=== PATIENT | female | born 1965 | race Caucasian/White ===

== ENCOUNTER → 2016-11-05 | Outpatient (CLI) | payer OTHER ==
[~2016-11-05] MED LIST: ALBUTEROL17 GM INH; ATARAX PO; BACLOFEN10 MG PO; CELEBREX100 MG PO; DULERA 200 MCG/13 GM IH; MEDROL DOSEPAK4 MG DOB; MEDROL PO; NO MEDICATIONS; NORCO1 TAB 10/3; PREDNISONE PO; PROMETHAZINE W118 M1 PO; SPIRIVA18 MCG PO; SYMBICORT INH; TUSSINEX PO; VIBRAMYCIN100 M1 PO; VOLTAREN75 MG; ZITHROMAX PO
--- NOTE | ~2016-11-05 | CT57 ---
[facility] A Service of [facility] RADIOLOGY TEXT RESULTS PATIENT: [id number] 61 UNIT #: [id number] AGE: [address]: Jaylyn To SEX: F ORDER DR: [id number] [facility]. [place], [place] [address] [id number] O MR#: [id number] Acc #: [id number] NAME: ELY AYERS : 1965 SEX: F STUDY DATE/TIME: 11/05/2016 14:09 UNIT: [facility] ROOM: STUDY DESCRIPTION: CT Chest Wo Cont Attending Physician: Jaylyn To A.P.R.N. Referring Physician: Jaylyn To A.P.R.N. Ordering Physician: Shayy LagosRTarik Primary Care Physician: Ryan DiaPKeraRTarik MEDICAL IMAGING REPORT This report is preliminary unless electronic signature is present EXAM CT of the chest without contrast INDICATIONS Left-sided rib numbness for 1 month. Chest pain for 2 months. Shortness of breath and cough for [address] of the chest was performed without contrast. Coronal and sagittal reformatted images were obtained. This CT exam was performed with one or more of the following radiation dose reduction techniques: automatic exposure control, adjustment of mA and/or kV according to patient size, and iterative reconstruction. COMPARISON STUDIES No comparisons. FINDINGS Emphysema with biapical scarring. There is no suspicious pulmonary nodule. No airspace consolidation. No suspicious lymphadenopathy. Minimal coronary artery calcification. Limited imaging of the upper abdomen is unremarkable. Bone windows are unremarkable. IMPRESSION Emphysema with biapical scarring. Otherwise, unremarkable. Dictated by... Christopher Finnegan M.D. THIS IS AN ELECTRONICALLY VERIFIED REPORT [facility] A Service of [facility] RADIOLOGY TEXT RESULTS PATIENT: ELY AYERS LOCATION: [facility] #: [id number] : 61 UNIT #: [id number] AGE: [address]: Jaylyn To SEX: F ORDER DR: Christopher Finnegan M.D. at 11/06/2016 9:05 AM ARS/pcl TD: 11/05/2016 15:55 JOB #: [id number] MEDICAL IMAGING REPORT Page 1 of 1 COPY
== END | disposition home or self-care (01) ==
LOC: CCAT 12:46
DX: J44.9 Chronic obstructive pulmonary disease, unspecified (principal); J98.4 Other disorders of lung; Z72.0 Tobacco use; R20.2 Paresthesia of skin
CPT/HCPCS: 71250

== ENCOUNTER 2016-11-12 00:40 | Emergency (ER) | payer OTHER ==
--- NOTE | ~2016-11-12 | CR127 ---
[facility]. [facility] A Service of [facility] RADIOLOGY TEXT RESULTS PATIENT: ELY AYERS LOCATION: SED : 61 UNIT #: [id number] AGE: [address]: Phi Jose MD SEX: F ORDER DR: [id number] [address] [id number] E MR#: [id number] Acc #: [id number] NAME: ELY AYERS : 1965 SEX: F STUDY DATE/TIME: 11/12/2016 2:30 UNIT: SED ROOM: STUDY DESCRIPTION: CR Foot Complete Min 3 View Rt Attending Physician: Phi Jose M.D. Ordering Physician: Phi Jose M.D. Primary Care Physician: Shila Quinones A.P.R.N. MEDICAL IMAGING REPORT This report is preliminary unless electronic signature is present. EXAM Right foot series INDICATION Right foot pain today. PROCEDURE 3 views of the right foot COMPARISON 10/15/2013 FINDINGS No acute fracture. No dislocation. IMPRESSION No acute findings. Dictated by... Stan Bennett M.D. THIS IS AN ELECTRONICALLY VERIFIED REPORT Stan Bennett M.D. at 11/16/2016 7:22 AM Patrick TD: 11/12/2016 10:12 JOB #: [id number] MEDICAL IMAGING REPORT Page 1 of 1
== END 2016-11-12 03:20 | disposition home or self-care (01) ==
LOC: SED 00:40
DX: S90.121A Contusion of right lesser toe(s) without damage to nail, initial encounter (principal); J44.9 Chronic obstructive pulmonary disease, unspecified; F17.200 Nicotine dependence, unspecified, uncomplicated; X58.XXXA Exposure to other specified factors, initial encounter
CPT/HCPCS: 73630; 99282; 99283